=== PATIENT | female | born 1990 | race Two or more races ===

== ENCOUNTER 2025-08-30 19:10 | Emergency (ER) | payer OTHER ==
[~2025-08-30] VITALS: Ht 170.2 cm; Wt 95.3 kg
[2025-08-30 19:10] VITALS: BP 129/83
[2025-08-30 21:25] LABS: PLATELET COUNT (AUTO) 282 K/uL (179-408); RED BLOOD CELL COUNT(AUTO) 4.43 MIL/uL (3.63-4.92); RED CELL DISTRIBUTION WIDTH 13.4 % (12.3-17.7); WHITE BLOOD COUNT (AUTO) 9.1 K/uL (3.8-11.8)
[2025-08-30 21:31] LABS: CREATININE 0.6 mg/dL (0.6-1.3); SODIUM SERUM 141.0 mmol/L (136-145); UREA NITROGEN, BLOOD 5.0 mg/dL (7-18)
[2025-08-30 21:36] LABS: ASPARTATE AMINOTRANSFERASE 13.0 U/L (15-37); TOTAL PROTEIN, SERUM 7.3 g/dL (6.4-8.2)
[2025-08-30 22:00] LABS: PREGNANCY TEST SERUM QUAN 43884.0 miul/L (0-6)
[2025-08-30 23:19] VITALS: BP 124/71; O2SAT 98
== END 2025-08-30 23:20 | disposition home or self-care (01) ==
LOC: ER 19:10
DX: O20.0 Threatened abortion (principal); Z98.890 Other specified postprocedural states; Z3A.08 8 weeks gestation of pregnancy
CPT/HCPCS: 36415; 76856; 85025; 85730; A4606; A4663